=== PATIENT | female | born 1995 | race Caucasian/White ===

== ENCOUNTER 2017-01-21 14:58 | Emergency (ER) | payer BC ==
[~2017-01-21] VITALS: Ht 167.6 cm; Wt 90.7 kg
--- NOTE | ~2017-01-21 | CR229 ---
[facility] A Service of [facility] & [facility] RADIOLOGY TEXT RESULTS PATIENT: JASON LEVY LOCATION: [facility] : [birth year] UNIT #: [id number] AGE: [address]: Jossue Renner MD SEX: F ORDER DR: [id number] [facility] [address] [place], [place] [address] [id number] E MR#: [id number] Acc #: [id number] NAME: JASON LEVY : 1995 SEX: F STUDY DATE/TIME: 01/21/2017 15:52 UNIT: [facility] ROOM: STUDY DESCRIPTION: CR Shoulder Min 2 View Lt Attending Physician: Jossue Renner Ordering Physician: Ed Cristobal Villarreal M.D. Primary Care Physician: Lorena Saab MEDICAL IMAGING REPORT This report is preliminary unless electronic signature is present EXAM Left shoulder 3 views INDICATION Pain and swelling of the left shoulder today after doing a handstand in a pool. No comparison studies are available. FINDINGS There is an anterior/inferior dislocation of the shoulder. No definite fracture is seen. IMPRESSION Anterior/inferior left shoulder dislocation. No definite fracture. Dictated by... Hernandez Landrum M.D. THIS IS AN ELECTRONICALLY VERIFIED REPORT Hernandez Landrum M.D. at 01/22/2017 7:32 AM YASMANI/jovanny TD: 01/22/2017 03:27 JOB #: [id number] MEDICAL IMAGING REPORT Page 1 of 1 COPY
--- NOTE | ~2017-01-21 | CR226 ---
[facility] A Service of [facility] & [facility] RADIOLOGY TEXT RESULTS PATIENT: JASON LEVY LOCATION: [facility] : [birth year] UNIT #: [id number] AGE: [address]: Jossue Renner MD SEX: F ORDER DR: [id number] [facility] [address] [place], [place] [address] [id number] E MR#: [id number] Acc #: [id number] NAME: JASON LEVY : 1995 SEX: F STUDY DATE/TIME: 01/21/2017 17:15 UNIT: [facility] ROOM: STUDY DESCRIPTION: CR Shoulder 1 View Lt Attending Physician: Lg Renner M.D. Ordering Physician: Wilmer Connelly M.D. Primary Care Physician: Brianna Saab M.D. MEDICAL IMAGING REPORT This report is preliminary unless electronic signature is present EXAM Left shoulder HISTORY Shoulder dislocation. TECHNIQUE A single view of the shoulder was obtained. FINDINGS A single view of the shoulder shows satisfactory alignment and position following closed reduction. Dictated by... aYmil Nayka M.D. THIS IS AN ELECTRONICALLY VERIFIED REPORT Yamil Nayak M.D. at 01/23/2017 7:07 AM ALEXANDRO/rohit TD: 01/22/2017 07:59 JOB #: [id number] MEDICAL IMAGING REPORT Page 1 of 1 COPY
[~2017-01-21 14:58] MED LIST: KEFLEX500 M1 PO; NO MEDICATIONS; TYLENOL #3 PO
== END 2017-01-21 18:46 | disposition home or self-care (01) ==
LOC: CED 14:58
DX: S43.005A Unspecified dislocation of left shoulder joint, initial encounter (principal); F17.210 Nicotine dependence, cigarettes, uncomplicated; W17.89XA Other fall from one level to another, initial encounter; Y92.34 Swimming pool (public) as the place of occurrence of the external cause
CPT/HCPCS: 23650; 73020; 73030; 99152; 99283